=== PATIENT | female | born 1960 | race Caucasian/White ===

== ENCOUNTER 2016-10-01 10:53 | Emergency (ER) | payer BC ==
[2016-10-01] MEDS ORDERED: HYDROcodone/APAP 5-325MG 1 EACH TAB PO STA (11:28)
--- NOTE | 2016-10-01 11:30 | ED ---
General Adult HPI - General Chief complaint: Extremity Injury, Upper Stated complaint: RT SIDE RIB PAIN FROM FALL Time Seen by Provider: 10/01/16 11:21 Source: patient, RN notes reviewed Mode of arrival: ambulatory Limitations: no limitations - History of Present Illness Initial comments: Patient 56-year-old female who presents emergency room today with chief complaint of a fall that occurred middle of night. She states she was getting up to go to the bathroom slipped and fell landing on the edge of the bathtub on the right ribs. Patient denies any head injury or loss consciousness. Does admit pain locally to the right rib area. States it's worse with movements, deep breath, cough. Patient states not had any pain medication. She denies any other complaints or associated symptoms. Patient denies any recent fever, chills, shortness of breath, chest pain, back pain, abdominal pain, nausea or vomiting, numbness or tingling, dysuria or hematuria, constipation or diarrhea, headaches or visual changes, or any other complaints. - Related Data Home Medications Medication Instructions Recorded Confirmed Multivitamin [Multivitamins Adult 1 tab PO DAILY 10/01/16 10/01/16 Gummies] Previous Rx's Medication Instructions Recorded Hydrocodone/Acetaminophen [Jefferson 1 each PO Q6HR PRN #20 tab 10/01/16 5-325] Ibuprofen [Motrin] 600 mg PO Q6HR PRN #40 day 10/01/16 Allergies Allergy/AdvReac Type Severity Reaction Status Date / Time morphine Allergy Rash/Hives Verified 10/01/16 11:14 Penicillins Allergy Rash/Hives Verified 10/01/16 11:14 Review of Systems ROS Statement: Those systems with pertinent positive or pertinent negative responses have been documented in the HPI. ROS Other: All systems not noted in ROS Statement are negative. Past Medical History Past Medical History: No Reported History History of Any Multi-Drug Resistant Organisms: None Reported Past Surgical History: Cholecystectomy, Hysterectomy Past Psychological History: No Psychological Hx Reported Smoking Status: Current every day smoker Past Alcohol Use History: Occasional Past Drug Use History: None Reported General Exam - General Exam Comments Initial Comments: General: The patient is awake and alert, in no distress, and does not appear acutely ill. Eye: Pupils are equal, round and reactive to light, extra-ocular movements are intact. No nystagmus. There is normal conjunctiva bilaterally. No signs of icterus. Ears, nose, mouth and throat: There are moist mucous membranes and no oral lesions. Neck: The neck is supple, there is no tenderness or JVD. Cardiovascular: There is a regular rate and rhythm. No murmur, rub or gallop is appreciated. Respiratory: Lungs are clear to auscultation, respirations are non-labored, breath sounds are equal. No wheezes, stridor, rales, or rhonchi. Gastrointestinal: Soft, non-distended, non-tender abdomen without masses or organomegaly noted. There is no rebound or guarding present. No CVA tenderness. Musculoskeletal: Limited range of motion due to pain. Patient does have normal appearance of the right lateral ribs no obvious deformity. No bruising or swelling appreciated. Patient is tender to palpation right lower lateral ribs. She does reproduce her pain. No other bony tenderness on exam. Strength 5/5. Sensation intact. Pulses equal bilaterally 2+. Neurological: A&O x 3. CN II-XII intact, There are no obvious motor or sensory deficits. Coordination appears grossly intact. Speech is normal. Skin: Skin is warm and dry and no rashes or lesions are noted. Psychiatric: Cooperative, appropriate mood & affect, normal judgment. Limitations: no limitations Course Vital Signs 10/01/16 10:55 Temperature 99.1 F Pulse Rate 84 Respiratory 20 Rate Blood Pressure 121/83 O2 Sat by Pulse 100 Oximetry Medical Decision Making - Medical Decision Making Patient reexamined at this time shows no signs of distress. Patient's x-rays reviewed and are negative for any acute fracture dislocation. No other acute abnormalities. Results were discussed with the patient. Patient will be discharged home. Given pain medication. Advised return for any other concerns. Disposition Clinical Impression: Contusion of rib Disposition: HOME SELF-CARE Condition: Good Instructions: Rib Contusion (ED) Additional Instructions: Please use medication as discussed. Please follow-up with family doctor in the next 2 days of symptoms have not improved. Please return to emergency room if the symptoms increase or worsen or for any other concerns. Prescriptions: Hydrocodone/Acetaminophen [Jefferson 5-325] 1 each PO Q6HR PRN #20 tab PRN Reason: Pain Ibuprofen [Motrin] 600 mg PO Q6HR PRN #40 day PRN Reason: Pain Time of Disposition: 13:01
--- NOTE | 2016-10-01 12:41 | XR ---
EXAMINATION TYPE: PA chest and right rib series DATE OF EXAM: 10/01/2016 12:03 PM COMPARISON: 05/25/2011 HISTORY: 56-year-old female with fall and right rib injury, pain. FINDINGS: Heart is normal size. Aorta and pulmonary vasculature within normal limits. Some strandy atelectasis in the lower lungs. No consolidation, pneumothorax, or pleural effusion. Similar dextroconvex scoliosis of the thoracic spine. Right RIBS: No displaced right rib fracture is seen. Suggestion of underlying breast implant. IMPRESSION: No acute cardiopulmonary process or displaced right rib fracture. Dextroconvex scoliosis.
[2016-10-01] MEDS ORDERED: IBUPROFEN 600 MG STARTER PACK 4 TAB BTL PO STA (12:56)
[2016-10-01 13:13] VITALS: BP 120/79; PULSE 68; RESP 16; TEMP 98.7
== END 2016-10-01 13:12 | disposition home or self-care (01) ==
LOC: EC 10:53
DX: S20.211A Contusion of right front wall of thorax, initial encounter (principal); F17.200 Nicotine dependence, unspecified, uncomplicated; Z88.0 Allergy status to penicillin; Z88.5 Allergy status to narcotic agent; Z79.899 Other long term (current) drug therapy; W01.198A Fall on same level from slipping, tripping and stumbling with subsequent striking against other object, initial encounter; Y92.091 Bathroom in other non-institutional residence as the place of occurrence of the external cause
CPT/HCPCS: 99283

== ENCOUNTER → 2021-08-28 | Outpatient (CLI) | payer BC ==
--- NOTE | 2021-08-28 10:58 | US ---
EXAMINATION TYPE: US abdomen complete DATE OF EXAM: 08/28/2021 COMPARISON: NONE CLINICAL HISTORY: R10.9 ABDOMINAL PAIN. Right flank pain x 6 days, history of cholecystectomy EXAM MEASUREMENTS: Liver Length: 12.1 cm CBD: 0.6 cm Spleen: 8.4 cm Right Kidney: 9.1 x 4.6 x 5.0 cm Left Kidney: 10.2 x 4.7 x 4.9 cm Pancreas: wnl Liver: wnl Gallbladder: surgically absent Evidence for sonographic Garza's sign: no CBD: wnl Spleen: wnl Right Kidney: wnl Left Kidney: wnl Upper IVC: wnl Abd Aorta: wnl The liver is homogenous. The intrahepatic portion of the IVC and proximal abdominal aorta are within normal limits. Common bile duct is unremarkable. The visualized portions of the pancreas are homog enous. The spleen is unremarkable. Kidneys are symmetric and free of hydronephrosis. No renal lesi ons are seen. IMPRESSION: No significant abnormality appreciated.
== END | disposition home or self-care (01) ==
LOC: RADUSWWP 09:55
PROVIDERS: ATTEND Family Medicine
DX: R10.9 Unspecified abdominal pain (principal); Z90.49 Acquired absence of other specified parts of digestive tract
CPT/HCPCS: 76700

== ENCOUNTER → 2021-08-28 | Outpatient (CLI) | payer BC ==
--- NOTE | 2021-08-28 12:23 | XR ---
EXAMINATION TYPE: XR abdomen complete w decub DATE OF EXAM: 08/28/2021 COMPARISON: NONE HISTORY: R 10.9 TECHNIQUE: Supine, upright, and left side down lateral decubitus views of the abdomen are obtained. FINDINGS: Surgical clips are present in the right upper quadrant. There is a scoliotic curvature to the spine is S-shaped. There is no evidence for pneumoperitoneum. The bowel gas pattern is unremarkable as there is air throughout nondilated small and large bowel. No sizeable air fluid levels. No mass effects are seen. No unusual calcifications. IMPRESSION: Unremarkable study
== END | disposition home or self-care (01) ==
LOC: RADXRMAIN 09:11
PROVIDERS: ATTEND Physician Assistant
DX: R10.9 Unspecified abdominal pain (principal)
CPT/HCPCS: 74021

== ENCOUNTER → 2023-11-16 | Outpatient (CLI) | payer BC ==
--- NOTE | 2023-11-17 14:37 | MM ---
Reason for Exam: Screening (asymptomatic). Last mammogram was performed 1 year(s) and 4 month(s) ago. Patient History: Menarche at age 13. First Full-Term at age 18. Hysterectomy at age 38. Postmenopausal. Patient has history of breast feeding. Other cancer, age 63. 02/2021, Bilateral Implant Removal. 02/2021, Bilateral Implants. 02/2012, Bilateral Implants. Risk Values: Evelyn 5 year model risk: 1.1%. NCI Lifetime model risk: 5.0%. Prior Study Comparison: 10/29/2016 Left MG 3D diag mammo w/cad LT, [facility]. 12/21/2018 Bilateral MG 3D screening mammo w/cad, [facility]. 08/04/2022 Bilateral MG 3D screen mammo imp/cad., [facility]. Tissue Density: The breasts are almost entirely fatty. Findings: Analyzed By CAD. Bilateral breast implants appear intact. Right breast: There is no suspicious group of microcalcifications or new suspicious mass. Left breast: There is no suspicious group of microcalcifications or new suspicious mass. Overall Assessment: Negative, BI-RAD 1 Management: Screening Mammogram of both breasts in [address] [facility] will attempt to contact patient to return for supplemental views and ultrasound if indicated. Patient should continue monthly self-breast exams. A clinical breast exam by your physician is recommended on an annual basis. This exam should not preclude additional follow-up of suspicious palpable abnormalities. Note on Evelyn scores and lifetime risk: 1. A Evelyn score greater than 3% is considered moderate risk. If this is the case, consider specialist referral to assess eligibility for a risk reducing agent. 2. If overall lifetime risk for the development of breast cancer is 20% or higher, the patient may qualify for future screening with alternating mammogram and breast MRI. Electronically signed and approved by: Tristin Ritter DO
== END | disposition home or self-care (01) ==
LOC: RADMAMWWP 07:25
PROVIDERS: ATTEND Family Medicine
DX: Z12.31 Encounter for screening mammogram for malignant neoplasm of breast (principal); Z78.0 Asymptomatic menopausal state
CPT/HCPCS: 77063; 77067